=== PATIENT | male | born 1960 | race Caucasian/White ===

== ENCOUNTER 2022-06-03 08:59 | Emergency (ER) | payer OTHER ==
[~2022-06-03] VITALS: Ht 167.6 cm; Wt 90.7 kg
[2022-06-03 09:17] VITALS: BP_SYST 130
--- NOTE | 2022-06-03 10:05 | NUR ---
Patient to ER bed 4 to gown for evaluation. Side rails up. Report given to DELVIN REZA.
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
--- NOTE | 2022-06-03 10:44 | NUR ---
PT TO XRAY-AMB
--- NOTE | 2022-06-03 11:42 | NUR ---
Pt c/o sharp chest pain notified Nurse
[2022-06-03] MEDS ORDERED: KETOROLAC TROMETHAMINE 30 MG VIAL IM ONE (12:15)
--- NOTE | 2022-06-03 12:34 | NUR ---
Patient given written and verbal discharge instructions and verbalizes understanding. ER MD discussed with patient the results and treatment provided. Patient in stable condition. ID arm band removed. . Patient educated on pain management and to follow up with PMD. Pain Scale . Opportunity for questions provided and answered. Medication side effect fact sheet provided.
[2022-06-03 12:49] VITALS: BP_SYST 134
== END 2022-06-03 12:34 | disposition home or self-care (01) ==
LOC: SED 08:59
DX: S20.212A Contusion of left front wall of thorax, initial encounter (principal); S10.93XA Contusion of unspecified part of neck, initial encounter; V47.5XXA Car driver injured in collision with fixed or stationary object in traffic accident, initial encounter; Y93.89 Activity, other specified; Y92.89 Other specified places as the place of occurrence of the external cause; Y99.8 Other external cause status
CPT/HCPCS: 99284; 71046; 93005; 72040; 96372; J1885

== ENCOUNTER 2022-07-28 14:18 | Emergency (ER) | payer OTHER ==
[~2022-07-28] VITALS: Ht 167.6 cm; Wt 90.7 kg
[2022-07-28 14:47] VITALS: BP_SYST 143
--- NOTE | 2022-07-28 15:10 | NUR ---
Pt brought by self, A&Ox4, pt presents to ER with swelling on perineal area/ penis, skin pink and warm, cap refill <3, VSS, respirations even and unlabored, will cont to monitor.
--- NOTE | 2022-07-28 19:33 | NUR ---
MD with patient for evaluation.
[2022-07-28 20:15] VITALS: BP_SYST 143
--- NOTE | 2022-07-28 20:15 | NUR ---
Patient given written and verbal discharge instructions and verbalizes understanding. ER Dr. Morales discussed with patient the results and treatment provided. Patient in stable condition. ID arm band removed. Patient educated on pain management and to follow up with PMD. Pain Scale 0. Opportunity for questions provided and answered. Medication side effect fact sheet provided.
== END 2022-07-28 20:15 | disposition home or self-care (01) ==
LOC: SED 14:18
DX: N48.1 Balanitis (principal); N48.89 Other specified disorders of penis; E11.9 Type 2 diabetes mellitus without complications; Z79.899 Other long term (current) drug therapy
CPT/HCPCS: 99282

== ENCOUNTER 2023-07-26 16:39 | Emergency (ER) | payer OTHER ==
[~2023-07-26] VITALS: Ht 167.6 cm; Wt 90.7 kg
[2023-07-26 16:46] VITALS: BP_SYST 153; PULSE 94; RESP 20; TEMP 98.3; O2SAT 96
[2023-07-26 17:10] VITALS: BP_SYST 153; PULSE 100; RESP 17; TEMP 97.4; O2SAT 98
[2023-07-26 17:21] LABS: BASOPHILS % (AUTO) 0.6 % (0.0-2.0); EOSINOPHILS % (AUTO) 0.7 % (0.0-4.0); HEMATOCRIT 45.8 % (36-54); HEMOGLOBIN 15.6 g/dL (14.0-18.0); LYMPHOCYTES # (AUTO) 2.1 K/uL (1.0-5.5); LYMPHOCYTES % (AUTO) 33.4 % (20.5-51.5); MEAN CORPUSCULAR HEMOGLOBIN 30 pg (27-31); MEAN CORPUSCULAR HGB CONC 34 % (32-36); MEAN CORPUSCULAR VOLUME 88 fL (79.0-98.0); MONOCYTES # (AUTO) 0.4 K/uL (0.0-1.0); MONOCYTES % (AUTO) 6.8 % (1.7-9.3); NEUTROPHILS # (AUTO) 3.7 K/uL (1.8-7.7); NEUTROPHILS % (AUTO) 58.5 % (40.0-70.0); PLATELET COUNT (AUTO) 217 K/uL (130-430); RED BLOOD CELL COUNT(AUTO) 5.23 MIL/uL (4.2-6.2); RED CELL DISTRIBUTION WIDTH 13.3 % (9.0-15.0); WHITE BLOOD COUNT (AUTO) 6.4 K/uL (4.8-10.8)
[2023-07-26 17:55] LABS: ALANINE AMINOTRANSFERASE 39 U/L (12-78); ALBUMIN 3.9 g/dL (3.4-4.8); ANION GAP 14 (5-15); ASPARTATE AMINOTRANSFERASE 24 U/L (10-37); CALCIUM 9.7 mg/dL (8.4-11.0); CARBON DIOXIDE 24 mmol/L (23-29); CHLORIDE 97 mmol/L (98-107); CREATININE 0.95 mg/dL (0.55-1.30); GFR AFRICAN AMERICAN 103 mL/min (>90); GLUCOSE 363 mg/dL (74-106); SODIUM SERUM 135 mmol/L (136-145); TOTAL BILIRUBIN 0.3 mg/dL (0.0-1.0); TOTAL PROTEIN, SERUM 7.3 g/dL (6.4-8.3); UREA NITROGEN, BLOOD 16 mg/dL (8-21)
[2023-07-26 18:06] LABS: GFR NON AFRICAN-AMERICAN 85 mL/min (>90)
== END 2023-07-26 19:23 | disposition left against medical advice (07) ==
LOC: SED 16:39
DX: R07.9 Chest pain, unspecified (principal); Z79.899 Other long term (current) drug therapy
CPT/HCPCS: 36415; 71045; 80053; 84484; 85025; 93005; 99285

== ENCOUNTER 2023-09-03 21:44 | Emergency (ER) | payer OTHER ==
[~2023-09-03] VITALS: Ht 167.6 cm; Wt 90.7 kg
[2023-09-03 21:50] VITALS: BP_SYST 122; PULSE 89; RESP 18; TEMP 98.2; O2SAT 99
== END 2023-09-03 21:50 | disposition left against medical advice (07) ==
LOC: SED 21:44
DX: M25.572 Pain in left ankle and joints of left foot (principal); Z53.21 Procedure and treatment not carried out due to patient leaving prior to being seen by health care provider
CPT/HCPCS: 99281

== ENCOUNTER 2023-12-16 13:50 | Emergency (ER) | payer MEDICAID, OTHER ==
[~2023-12-16] VITALS: Ht 167.6 cm; Wt 90.7 kg
[2023-12-16 13:50] VITALS: BP_SYST 164; PULSE 89; RESP 18; TEMP 97.4; O2SAT 96
[2023-12-16] MEDS ORDERED: IBUP-1971 PO (15:46)
[2023-12-16] MEDS ORDERED: TRAM50TA2 PO (15:46)
[2023-12-16 16:27] VITALS: BP_SYST 164; PULSE 89; RESP 18; TEMP 97.4; O2SAT 96
== END 2023-12-16 16:00 | disposition home or self-care (01) ==
LOC: SED 13:50
DX: S43.402A Unspecified sprain of left shoulder joint, initial encounter (principal); S00.83XA Contusion of other part of head, initial encounter; E11.9 Type 2 diabetes mellitus without complications; I10 Essential (primary) hypertension; Z79.899 Other long term (current) drug therapy; Y04.0XXA Assault by unarmed brawl or fight, initial encounter; Y93.89 Activity, other specified; Y92.89 Other specified places as the place of occurrence of the external cause; Y99.8 Other external cause status
CPT/HCPCS: 70450-TC; 71045; 72125-TC; 72170-TC; 73030; 76376; 93005; 99284

== ENCOUNTER 2024-02-11 08:36 | Emergency (ER) | payer MEDICAID ==
[~2024-02-11] VITALS: Ht 167.6 cm; Wt 79.4 kg
[~2024-02-11 08:36] MED LIST: IBUP-1971 PO; TRAM50TA2 PO
[2024-02-11 08:40] VITALS: BP_SYST 163; PULSE 85; PULSE 97; RESP 18; RESP 22; TEMP 97.8; TEMP 98.3; O2SAT 100; O2SAT 98
[2024-02-11 09:10] LABS: BASOPHILS % (AUTO) 0.6 % (0.0-2.0); EOSINOPHILS # (AUTO) 0.1 K/uL (0.0-0.4); EOSINOPHILS % (AUTO) 1.7 % (0.0-4.0); HEMATOCRIT 46.8 % (36-54); HEMOGLOBIN 16.1 g/dL (14.0-18.0); LYMPHOCYTES % (AUTO) 34.9 % (20.5-51.5); MEAN CORPUSCULAR HEMOGLOBIN 31 pg (27-31); MEAN CORPUSCULAR HGB CONC 35 % (32-36); MEAN CORPUSCULAR VOLUME 89 fL (79.0-98.0); MONOCYTES # (AUTO) 0.5 K/uL (0.0-1.0); NEUTROPHILS # (AUTO) 3.2 K/uL (1.8-7.7); NEUTROPHILS % (AUTO) 54.8 % (40.0-70.0); PLATELET COUNT (AUTO) 219 K/uL (130-430); RED BLOOD CELL COUNT(AUTO) 5.25 MIL/uL (4.2-6.2); RED CELL DISTRIBUTION WIDTH 13.2 % (9.0-15.0); WHITE BLOOD COUNT (AUTO) 5.8 K/uL (4.8-10.8)
[2024-02-11 09:15] LABS: BILIRUBIN,URINE NEGATIVE (NEGATIVE); BLOOD, URINE NEGATIVE (NEGATIVE); CLARITY/URINE CLEAR (CLEAR); COLOR,URINE YELLOW (YELLOW); GLUCOSE,URINE 3+ (NEGATIVE); KETONES,URINE NEGATIVE (NEGATIVE); LEUKOCYTE ESTERASE ,URINE NEGATIVE (NEGATIVE); NITRITE, URINE NEGATIVE (NEGATIVE); PH,URINE 6.5 (5.0-8.0); PROTEIN URINE NEGATIVE (NEGATIVE); UROBILINOGEN,URINE 0.2 (0.2-1.0)
[2024-02-11 09:27] LABS: PROTHROMBIN TIME 9.9 SECS (9.5-12.5)
[2024-02-11 09:35] LABS: ANION GAP 10 (5-15); CALCIUM 8.8 mg/dL (8.4-11.0); CARBON DIOXIDE 26 mmol/L (23-29); CHLORIDE 100 mmol/L (98-107); CREATININE 0.98 mg/dL (0.55-1.30); GFR AFRICAN AMERICAN 99 mL/min (>90); GLUCOSE 270 mg/dL (74-106); POTASSIUM 4.2 mmol/L (3.5-5.1); SODIUM SERUM 136 mmol/L (136-145); UREA NITROGEN, BLOOD 14 mg/dL (8-21)
[2024-02-11 09:38] LABS: GFR NON AFRICAN-AMERICAN 82 mL/min (>90)
[2024-02-11 09:39] LABS: ALANINE AMINOTRANSFERASE 24 U/L (12-78); AMYLASE 46 U/L (0-100); ASPARTATE AMINOTRANSFERASE 13 U/L (10-37); BILIRUBIN,DIRECT 0.1 mg/dL (0.0-0.3); LIPASE 41 U/L (16-77); TOTAL BILIRUBIN 0.3 mg/dL (0.0-1.0); TOTAL PROTEIN, SERUM 8.1 g/dL (6.4-8.3)
[2024-02-11] MEDS ORDERED: HYDR-3917 PO (11:34)
[2024-02-11] MEDS ORDERED: CLOT15CR5 TP (11:34)
[2024-02-11] MEDS ORDERED: OMEP20CA15 PO (11:34)
[2024-02-11 11:46] VITALS: BP_SYST 166; PULSE 80; RESP 16; TEMP 98.3; O2SAT 98
== END 2024-02-11 11:46 | disposition home or self-care (01) ==
LOC: SED 08:36
DX: N48.1 Balanitis (principal); R10.32 Left lower quadrant pain; R07.9 Chest pain, unspecified; E11.9 Type 2 diabetes mellitus without complications; I10 Essential (primary) hypertension; Z79.899 Other long term (current) drug therapy
CPT/HCPCS: 36415; 71045; 80048; 80076; 81001; 81003; 82150; 83605; 83690; 84484; 85025; 85610; 85730; 87491; 93005; 99285